=== PATIENT | female | born 1980 | race Caucasian/White ===

== ENCOUNTER 2024-04-03 19:52 | Emergency (ER) | payer OTHER, SELFPAY ==
[2024-04-03 19:54] VITALS: BP 160/110
--- NOTE | 2024-04-03 21:31 | ED.GENMED ---
History of Present Illness
General
Chief Complaint: Headache
Time Seen by Provider: 04/03/24 21:04
Travel History
Have you had any contact with someone who has COVID-19?: No
Do you have any symptoms of coronavirus? Fever > 100 degrees, chills, cough, shortness of breath, sore throat, loss of taste or smell, muscle aches, or headache?: No
History of Present Illness
History of Present Illness:
44-year-old female with no significant past medical history presents to the emergency department for evaluation of intermittent headaches occurring for the past week. She reports a sharp radiating pain from the right occiput to the frontal forehead
that is occasionally associated with dizziness, today she noted associated left arm numbness with the pain. She is predominantly [place]-speaking and requires an sql developer, notes that she took an unspecified [place] medication as a muscle
relaxant that did not help. She also notes that she recently from her and has an unsteady living situation and wonders whether stress could be contributory. Denies any recent fevers or chills.
Review of Systems
Review of Systems
Allergies reviewed?: Yes
All Other Systems: ROS reviewed and negative except as documented in HPI and ROS
Phy Exam
Physical Exam
Physical Exam:
GEN: Well appearing, NAD, WDWN
HEENT: Oral mucosa moist, no scleral icterus, no nasal congestion. No tenderness along the paracervical neck muscles
Cardiac: Regular rate
Lung: No respiratory distress, no tachypnea
MSK: No gross deformity or injuries
Skin: Good color, no pallor or jaundice, no rashes
Neuro: AO x3; CN II-XII grossly intact. BUE strength 5/5 in all gay, sensation intact and symmetric. BLE strength 5/5 in all gay, sensation intact and symmetric
Psych: Calm, cooperative
Course
Orders/Labs/Results
Orders:
Orders
04/03/24 21:30
CT Head W/o Iv Contrast Urgent
Comment:
Reason For Exam: headache/dizziness/L arm numbness
Ketorolac [Toradol] 15 mg IV NOW STA
Metoclopramide [Reglan] 10 mg IV NOW STA
Test Result ONCE
04/03/24 21:44
Complete Blood Count/With Diff Urgent
Comprehensive Metabolic Panel Urgent
HCG, Serum Qualitative Screen Urgent
Abnormal Lab Results
04/03/24
21:44
RBC 3.81 L 10^6/uL
(4.20-5.40)
Hct 34.4 L %
(37.0-47.0)
MCH 32.0 H pg
(27.0-31.0)
MPV 10.8 H fL
(7.4-10.4)
Monocytes % 9.4 H %
(1.7-9.3)
BUN 25 H mg/dl
(7-17)
Glucose 106 H mg/dl
(70-99)
04/03/24 21:44
04/03/24 21:44
Vital Signs
Initial and Last Documented VS:
Initial Vital Signs
Temp Pulse Resp BP Pulse Ox
98.5 F 94 18 160/110 100
04/03/24 19:54 04/03/24 19:54 04/03/24 19:54 04/03/24 19:54 04/03/24 19:54
Last Documented Vital Signs
Temp Pulse Resp BP Pulse Ox
98.5 F 74 18 130/94 100
04/03/24 19:54 04/03/24 21:46 04/03/24 19:54 04/03/24 21:46 04/03/24 21:46
MDM/Problems Addressed
MDM/Problems Addressed:
Patient is neurologically intact. Her pain pattern is suspicious for tension headache however the patient's reported left arm numbness cannot be discounted thus a CT of the head was obtained. She has no other stroke risk factors and CT was
negative which is reassuring given the symptoms lasting 1 week. Her pain resolved after treatment in the emergency department, will prescribe NSAIDs on a as needed basis
*Critical Care Note
Total Time (30-74mins, 75-104mins- exclusive of procedures): Not Applicable
ED Attending Note
-
Portions of this chart may have been created with voice recognition software.� Occasional wrong word or��sound alike� substitutions may have occurred due to the inherent limitations of voice recognition software.
Discharge Plan
Departure
Patient Disposition: Home (Routine Discharge)
Date of Disposition: 04/03/24
Time of Disposition: 22:37
Patient with high blood pressure during this ER visit?: No
Discharge Problem:
Acute tension headache
Instructions: Tension Headache (DC)
Prescriptions:
New
diclofenac sodium 75 mg tablet,delayed release (DR/EC)
75 mg PO BID Qty: 20 0RF
Interventions
Interventions:
*Risk Screen - Suicide Last Done: 04/03/24 19:54
*General Assessment Last Done: 04/03/24 21:23
*Neglect/Abuse Screening Last Done: 04/03/24 19:54
ED- Fall Risk Assessment Last Done: 04/03/24 21:23
*ED COVID-19 Vaccine History Last Done: 04/03/24 23:07
*Nursing Disposition Last Done: 04/03/24 23:07
ED- Neurological Assessment Last Done: 04/03/24 21:23
Discharge Date and Time
Discharge Date/Time: 04/03/24 23:11
Print Language: [place]
[2024-04-03] MEDS: REGLAN 10 MG IV (21:44)
[2024-04-03] MEDS: TORADOL 15 MG IV (21:44)
[2024-04-03 21:46] VITALS: BP 130/94
[2024-04-03 21:55] LABS: % Basophils 0.6 % (0-2); % Eosinophils 3.5 % (0-6); % Immature Granulocytes 0.3 % (0-0.5); % Lymphocytes 34.7 % (20.5-51.1); % Monocytes 9.4 % (1.7-9.3); % Neutrophils 51.5 % (42.2-75.2); Absolute Eosinophils 0.2 10^3/uL (0-0.7); Absolute Lymphocytes 2.2 10^3/uL (1.2-3.4); Absolute Monocytes 0.6 10^3/uL (0.1-0.6); Absolute Neutrophils 3.2 10^3/uL (1.4-6.5); Hematocrit 34.4 % (37.0-47.0); Hemoglobin 12.2 g/dL (12.0-16.0); Mean Corp Hgb Conc. 35.5 g/dL (33.0-37.0); Mean Corpuscular Volume 90.3 fL (81.0-99.0); Mean Platelet Volume 10.8 fL (7.4-10.4); Nucleated Red Blood Cells % 0 %; Platelet Count 184 10^3/uL (130-400); Red Blood Cell Count 3.81 10^6/uL (4.20-5.40); Red Cell Dist. Width 12.9 % (11.5-14.5); White Blood Cell Count 6.3 10^3/uL (4.8-10.8)
[2024-04-03 22:04] LABS: HCG, Serum Qualitative Screen Negative
[2024-04-03 22:09] LABS: ALT (SGPT) 26 U/L (0-35); AST (SGOT) 27 U/L (14-36); Albumin 4.2 g/dl (3.5-5.0); Alkaline Phosphatase 50 U/L (38-126); Blood Urea Nitrogen 25 mg/dl (7-17); Calcium 9.6 mg/dl (8.4-10.2); Carbon Dioxide 24 mmol/L (22-30); Chloride 106 mmol/L (98-107); Glucose 106 mg/dl (70-99); Potassium 4.1 mmol/L (3.5-5.1); Sodium 137 mmol/L (135-145); Total Bilirubin 0.3 mg/dl (0.2-1.3); Total Protein 6.9 g/dl (6.3-8.2); eGFR > 60.00
== END 2024-04-03 23:11 | disposition home or self-care (01) ==
LOC: EMR 19:52
PROVIDERS: Physician Assistant; EMERGENCY PHYSICIAN Emergency Medicine
DX: G44.209 Tension-type headache, unspecified, not intractable (principal)
CPT/HCPCS: 99284; 96374; 96375; 70450; 80053; 84703; 85025